=== PATIENT | male | born 2000 | race Caucasian/White ===

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

== ENCOUNTER → 2020-08-02 | Outpatient (CLI) | payer OTHER | LOC: KOH-I 09:55 | DX: M25.522 Pain in left elbow (principal) | CPT/HCPCS: 73221 ==